=== PATIENT | female | born 1995 | race African-American/Black ===

== ENCOUNTER 2018-12-19 18:33 | Emergency (ER) | payer SELFPAY ==
[~2018-12-19] VITALS: Ht 167.6 cm; Wt 74.8 kg
[2018-12-19 19:00] VITALS: BP 131/58
[2018-12-19] MEDS ORDERED: KETOROLAC 60 MG/2 ML VIAL. IM ONE (19:15)
--- NOTE | 2018-12-19 19:22 | PHYS DOC ---
Past Medical History Past Medical History: No Pertinent History Past Surgical History: Tubal ligation Alcohol Use: None Drug Use: None Adult General Chief Complaint Chief Complaint: SHOULDER INJURY HPI HPI Patient is a 23 year old female who presents with pain to her left shoulder x one week. She denies any injury. She states that she feels tightness in the muscles around her neck. She has full range of motion but states that occasionally when turning her body she will feel a shooting pain. Review of Systems Review of Systems Constitutional: Denies fever or chills [] Eyes: Denies change in visual acuity, redness, or eye pain [] HENT: Denies nasal congestion or sore throat [] Respiratory: Denies cough or shortness of breath [] Cardiovascular: No additional information not addressed in HPI [] GI: Denies abdominal pain, nausea, vomiting, bloody stools or diarrhea [] : Denies dysuria or hematuria [] Musculoskeletal: see history of present illness Integument: Denies rash or skin lesions [] Neurologic: Denies headache, focal weakness or sensory changes [] Endocrine: Denies polyuria or polydipsia [] All other systems were reviewed and found to be within normal limits, except as documented in this note. Current Medications Current Medications Current Medications Medications (Trade) Dose Ordered Sig/Higinio Start Time Stop Time Status Last Admin Dose Admin Ketorolac Tromethamine (Toradol Im) 60 mg 1X ONCE 12/19/18 19:15 12/19/18 19:28 DC 12/19/18 19:15 60 MG Allergies Allergies Allergies Coded Allergies Type Severity Reaction Last Updated Verified No Known Drug Allergies 12/19/18 No Physical Exam Physical Exam Constitutional: Well developed, well nourished, no acute distress, non-toxic appearance. [] HENT: Normocephalic, atraumatic, bilateral external ears normal, oropharynx moist, no oral exudates, nose normal. [] Eyes: PERRLA, EOMI, conjunctiva normal, no discharge. [] Neck: Normal range of motion, no tenderness, supple, no stridor. [] Cardiovascular:Heart rate regular rhythm, no murmur [] Lungs & Thorax: Bilateral breath sounds clear to auscultation [] Abdomen: Bowel sounds normal, soft, no tenderness, no masses, no pulsatile masses. [] Skin: Warm, dry, no erythema, no rash. [] Back: No tenderness, no CVA tenderness. [] Extremities: tenderness to left trapezius with patient, no cyanosis, no clubbing , ROM intact, no edema. [] Neurologic: Alert and oriented X 3, normal motor function, normal sensory function, no focal deficits noted. [] Psychologic: Affect normal, judgement normal, mood normal. [] Current Patient Data Vital Signs Vital Signs Date Time Temp Pulse Resp B/P (MAP) Pulse Ox O2 Delivery O2 Flow Rate FiO2 12/19/18 19:00 98.6 76 16 131/58 (82) 97 Room Air 98.6 EKG EKG [] Radiology/Procedures Radiology/Procedures [] Course & Med Decision Making Course & Med Decision Making Pertinent Labs and Imaging studies reviewed. (See chart for details) [] Dragon Disclaimer Dragon Disclaimer This electronic medical record was generated, in whole or in part, using a voice recognition dictation system. Departure Departure Impression: Primary Impression: Shoulder strain Disposition: HOME, SELF-CARE Condition: STABLE Referrals: CHAITANYA BAI MD (PCP) Patient Instructions: Shoulder Pain, Shoulder, Range of Motion Exercises Additional Instructions: Take the medications as directed. Do not drive or operate heavy machinery while taking these medications. They may cause drowsiness. Follow-up with your primary care provider in one week if not improving or return to the emergency department if worsening. Scripts Tramadol Hcl (TRAMADOL HCL) 50 Mg Tablet 50 MG PO DAILY PRN for PAIN for 30 Days, #30 TAB 0 Refills Prov: MAYURI BHAGAT APRN 12/19/18 Cyclobenzaprine Hcl (CYCLOBENZAPRINE HCL) 5 Mg Tablet 1 TAB PO QHS for shoulder strain, #30 TAB Prov: MAYURI BHAGAT APRN 12/19/18 MAYURI BHAGAT APRN Dec 19, 2018 19:22
[2018-12-19] MEDS ORDERED: CYCL5TAB PO (19:45)
[2018-12-19] MEDS ORDERED: TRAM50TA PO (19:45)
== END 2018-12-19 19:57 | disposition home or self-care (01) ==
LOC: ER 18:33
DX: S46.812A Strain of other muscles, fascia and tendons at shoulder and upper arm level, left arm, initial encounter (principal); X58.XXXA Exposure to other specified factors, initial encounter; Y93.89 Activity, other specified; Y92.89 Other specified places as the place of occurrence of the external cause; Y99.8 Other external cause status; Z98.51 Tubal ligation status
CPT/HCPCS: 96372; 99283; J1885

== ENCOUNTER 2018-12-29 20:37 | Emergency (ER) | payer SELFPAY ==
[~2018-12-29] VITALS: Ht 167.6 cm; Wt 72.6 kg
[~2018-12-29 20:37] MED LIST: CYCL5TAB PO; TRAM50TA PO
[2018-12-29 21:42] LABS: BILIRUBIN,URINE NEGATIVE (NEG); CLARITY,URINE CLOUDY; COLOR,URINE YELLOW; NITRITE,URINE NEGATIVE (NEG); PH,URINE 5.5; PROTEIN,URINE NEGATIVE (NEG-TRACE); UROBILINOGEN,URINE 0.2 mg/dL (0.2 mg/dL)
[2018-12-29 21:43] LABS: BASO % 1 % (0-3); EOS # 0.1 x10^3/uL (0.0-0.7); EOS % 2 % (0-3); HEMOGLOBIN 12.5 g/dL (12.0-15.5); LYMPH # 2.9 x10^3/uL (1.0-4.8); LYMPH % 53 % (24-48); MEAN CORPUSCULAR HEMOGLOBIN 27 pg (25-35); MEAN CORPUSCULAR HGB CONC 33 g/dL (31-37); MEAN CORPUSCULAR VOLUME 82 fL (79-100); MONO # 0.5 x10^3/uL (0.0-1.1); MONO % 9 % (0-9); NEUT % 35 % (31-73); PLATELET COUNT 332 x10^3/uL (140-400); RED BLOOD COUNT 4.66 x10^6/uL (3.50-5.40); RED CELL DISTRIBUTION WIDTH 13.2 % (11.5-14.5); WHITE BLOOD COUNT 5.5 x10^3/uL (4.0-11.0)
[2018-12-29] MEDS ORDERED: IV NORMAL SALINE 1000ML BAG 1,000 ML IV SCH (21:45)
[2018-12-29] MEDS ORDERED: ONDANSETRON PF 4 MG/2 ML VIAL. IV ONE (21:45)
[2018-12-29] MEDS ORDERED: KETOROLAC 30 MG/ML VIAL. IV ONE (21:45)
[2018-12-29 21:52] LABS: CALCIUM 8.9 mg/dL (8.5-10.1); CREATININE 0.9 mg/dL (0.6-1.0); GFR 92.3; POTASSIUM 3.8 mmol/L (3.5-5.1)
[2018-12-29 21:52] LABS: BACTERIA,URINE MANY /HPF (0-FEW); RBC,URINE OCC /HPF (0-2); SQUAMOUS EPITHELIAL CELL,UR MANY /LPF; WBC,URINE >40 /HPF (0-4)
[2018-12-29 21:58] LABS: ALBUMIN 3.9 g/dL (3.4-5.0); TOTAL BILIRUBIN 0.2 mg/dL (0.2-1.0); TOTAL PROTEIN 7.8 g/dL (6.4-8.2)
[2018-12-29] MEDS ORDERED: CONTRAST GIVEN. MC PRN (23:00)
[2018-12-29] MEDS ORDERED: IOHEXOL 300 MG/ML 100ML VIAL. IV ONE (23:00)
--- NOTE | 2018-12-29 23:19 | RAD ---
PQRS Compliance Statement: One or more of the following individualized dose reduction techniques were utilized for this examination: 1. Automated exposure control 2. Adjustment of the mA and/or kV according to patient size 3. Use of iterative reconstruction technique CT abdomen/pelvis with contrast 12/29/2018 10:27 PM INDICATION: Abdominal pain COMPARISON: None available TECHNIQUE: Multiple axial CT images of the abdomen and pelvis were obtained after the intravenous administration of 75 mL Omnipaque 300. Coronal and sagittal reformats are provided. FINDINGS: Visualized portions of the lung bases are clear. Heart size is within normal limits. No suspicious hepatic masses are identified. Liver is homogeneous in enhancement. Spleen, bilateral adrenal glands, and pancreas are normal in appearance. Gallbladder is present without adjacent inflammatory changes. The abdominal aorta is normal in course and caliber. There are no pathologically enlarged lymph nodes in the abdomen and pelvis. There is no abdominal free fluid. There is no free intraperitoneal air. The kidneys enhance symmetrically. There is no suspicious renal mass. There is no hydronephrosis. There are no suspected calculi within the kidneys, ureters or urinary bladder. Small and large bowel are normal in caliber. There is no evidence for bowel obstruction. There are no pericolonic inflammatory changes. A normal, nondilated appendix is visualized without adjacent inflammatory changes. The urinary bladder is within normal limits given degree of distention. Uterus and adnexa are within normal limits. No suspicious pelvic masses are identified. There are no suspicious osseous lesions identified. Phleboliths are identified within the pelvis. Tubal ligation clips are identified bilaterally. IMPRESSION: There is no acute abnormality identified in abdomen or pelvis. Electronically signed by: Lauren Cook MD (12/29/2018 11:17 PM) [facility]
[2018-12-29 23:42] VITALS: BP 126/72
[2018-12-29] MEDS ORDERED: TRAM50TA PO (23:58)
[2018-12-29] MEDS ORDERED: ONDA4TAB7 PO (23:58)
--- NOTE | 2018-12-29 23:58 | PHYS DOC ---
Past Medical History Past Medical History: No Pertinent History Past Surgical History: Tubal ligation Alcohol Use: None Drug Use: None Adult General Chief Complaint Chief Complaint: ABDOMINAL PAIN [facility] HPI Patient is a 23-year-old female who presents with complaint of lower abdominal pain for the last few days. She states the pain is primarily in the right lower abdomen. She denies any nausea, vomiting or diarrhea. She also denies any fever. She ascribes pain as being a cramp-like. She rates pain at a 7 out of 10. Patient states that nothing improves her pain. She does indicate the pain is worsened when she is up and walking. She denies any urinary discomfort. Review of Systems Review of Systems Constitutional: Denies fever or chills [] Respiratory: Denies cough or shortness of breath [] Cardiovascular: No additional information not addressed in HPI [] GI: Complains of lower abdominal pain without nausea, vomiting or diarrhea [] : Denies dysuria or hematuria [] Musculoskeletal: Denies back pain or joint pain [] All other systems were reviewed and found to be within normal limits, except as documented in this note. Current Medications Current Medications Current Medications Medications (Trade) Dose Ordered Sig/Higinio Start Time Stop Time Status Last Admin Dose Admin Info (CONTRAST GIVEN -- Rx MONITORING) 1 each PRN DAILY PRN 12/29/18 23:00 12/30/18 00:10 DC Iohexol (Omnipaque 300 Mg/ml) 75 ml 1X ONCE 12/29/18 23:00 12/29/18 23:01 DC 12/29/18 23:06 75 ML Ketorolac Tromethamine (Toradol 30mg Vial) 30 mg 1X ONCE 12/29/18 21:45 12/29/18 21:46 DC 12/29/18 21:47 30 MG Ondansetron HCl (Zofran) 4 mg 1X ONCE 12/29/18 21:45 12/29/18 21:46 DC 12/29/18 21:46 4 MG Sodium Chloride 1,000 ml @ 1,000 mls/hr Q1H 12/29/18 21:45 12/29/18 22:44 DC 12/29/18 21:44 1,000 MLS/HR Allergies Allergies Allergies Coded Allergies Type Severity Reaction Last Updated Verified No Known Drug Allergies 12/19/18 No Physical Exam Physical Exam Constitutional: Well developed, well nourished, no acute distress, non-toxic appearance. [] HENT: Normocephalic, atraumatic, bilateral external ears normal, oropharynx moist, no oral exudates, nose normal. [] Eyes: PERRLA, EOMI, conjunctiva normal, no discharge. [] Neck: Normal range of motion, no tenderness, supple, no stridor. [] Cardiovascular:Heart rate regular rhythm, no murmur [] Lungs & Thorax: Bilateral breath sounds clear to auscultation [] Abdomen: Bowel sounds normal, soft with mild tenderness to palpation in the right lower a abdominal/adnexal region. [] Skin: Warm, dry, no erythema, no rash. [] Extremities: No tenderness, no cyanosis, no clubbing, ROM intact, no edema. [] Neurologic: Alert and oriented X 3, normal motor function, normal sensory function, no focal deficits noted. [] Current Patient Data Vital Signs Vital Signs Date Time Temp Pulse Resp B/P (MAP) Pulse Ox O2 Delivery O2 Flow Rate FiO2 12/29/18 23:42 60 18 126/72 (90) 100 12/29/18 22:00 Room Air 12/29/18 21:02 97.9 97.9 Lab Values Laboratory Tests Test 12/29/18 20:59 12/29/18 21:00 12/29/18 21:34 Urine Collection Type Unknown Urine Color Yellow Urine Clarity Cloudy Urine pH 5.5 Urine Specific [place] 1.020 Urine Protein Negative mg/dL (NEG-TRACE) Urine Glucose (UA) Negative mg/dL (NEG) Urine Ketones (Stick) Negative mg/dL (NEG) Urine Blood Trace (NEG) Urine Nitrite Negative (NEG) Urine Bilirubin Negative (NEG) Urine Urobilinogen Dipstick 0.2 mg/dL (0.2 mg/dL) Urine Leukocyte Esterase Large (NEG) Urine RBC Occ /HPF (0-2) Urine WBC >40 /HPF (0-4) Urine Squamous Epithelial Cells Many /LPF Urine Bacteria Many /HPF (0-FEW) Urine Mucus Marked /LPF POC Urine HCG, Qualitative Hcg negative (Negative) White Blood Count 5.5 x10^3/uL (4.0-11.0) Red Blood Count 4.66 x10^6/uL (3.50-5.40) Hemoglobin 12.5 g/dL (12.0-15.5) Hematocrit 38.0 % (36.0-47.0) Mean Corpuscular Volume 82 fL (79-100) Mean Corpuscular Hemoglobin 27 pg (25-35) Mean Corpuscular Hemoglobin Concent 33 g/dL (31-37) Red Cell Distribution Width 13.2 % (11.5-14.5) Platelet Count 332 x10^3/uL (140-400) Neutrophils (%) (Auto) 35 % (31-73) Lymphocytes (%) (Auto) 53 % (24-48) H Monocytes (%) (Auto) 9 % (0-9) Eosinophils (%) (Auto) 2 % (0-3) Basophils (%) (Auto) 1 % (0-3) Neutrophils # (Auto) 2.0 x10^3uL (1.8-7.7) Lymphocytes # (Auto) 2.9 x10^3/uL (1.0-4.8) Monocytes # (Auto) 0.5 x10^3/uL (0.0-1.1) Eosinophils # (Auto) 0.1 x10^3/uL (0.0-0.7) Basophils # (Auto) 0.0 x10^3/uL (0.0-0.2) Sodium Level 137 mmol/L (136-145) Potassium Level 3.8 mmol/L (3.5-5.1) Chloride Level 101 mmol/L (98-107) Carbon Dioxide Level 27 mmol/L (21-32) Anion Gap 9 (6-14) Blood Urea Nitrogen 12 mg/dL (7-20) Creatinine 0.9 mg/dL (0.6-1.0) Estimated GFR (Cockcroft-Gault) 92.3 BUN/Creatinine Ratio 13 (6-20) Glucose Level 87 mg/dL (70-99) Calcium Level 8.9 mg/dL (8.5-10.1) Total Bilirubin 0.2 mg/dL (0.2-1.0) Aspartate Amino Transferase (AST) 11 U/L (15-37) L Alanine Aminotransferase (ALT) 12 U/L (14-59) L Alkaline Phosphatase 48 U/L (46-116) Total Protein 7.8 g/dL (6.4-8.2) Albumin 3.9 g/dL (3.4-5.0) Albumin/Globulin Ratio 1.0 (1.0-1.7) Lipase 99 U/L (73-393) Laboratory Tests 12/29/18 21:34 Laboratory Tests 12/29/18 21:34 EKG EKG [] Radiology/Procedures Radiology/Procedures [] Impressions: CT abdomen/pelvis with contrast 12/29/2018 10:27 PM INDICATION: Abdominal pain COMPARISON: None available TECHNIQUE: Multiple axial CT images of the abdomen and pelvis were obtained after the intravenous administration of 75 mL Omnipaque 300. Coronal and sagittal reformats are provided. FINDINGS: Visualized portions of the lung bases are clear. Heart size is within normal limits. No suspicious hepatic masses are identified. Liver is homogeneous in enhancement. Spleen, bilateral adrenal glands, and pancreas are normal in appearance. Gallbladder is present without adjacent inflammatory changes. The abdominal aorta is normal in course and caliber. There are no pathologically enlarged lymph nodes in the abdomen and pelvis. There is no abdominal free fluid. There is no free intraperitoneal air. The kidneys enhance symmetrically. There is no suspicious renal mass. There is no hydronephrosis. There are no suspected calculi within the kidneys, ureters or urinary bladder. Small and large bowel are normal in caliber. There is no evidence for bowel obstruction. There are no pericolonic inflammatory changes. A normal, nondilated appendix is visualized without adjacent inflammatory changes. The urinary bladder is within normal limits given degree of distention. Uterus and adnexa are within normal limits. No suspicious pelvic masses are identified. There are no suspicious osseous lesions identified. Phleboliths are identified within the pelvis. Tubal ligation clips are identified bilaterally. IMPRESSION: There is no acute abnormality identified in abdomen or pelvis. Electronically signed by: Sindhu Cook MD (12/29/2018 11:17 PM) [facility] DICTATED and SIGNED BY: SINDHU COOK MD Course & Med Decision Making Course & Med Decision Making Pertinent Labs and Imaging studies reviewed. (See chart for details) [] Dragon Disclaimer Dragon Disclaimer This electronic medical record was generated, in whole or in part, using a voice recognition dictation system. Departure Departure Impression: Primary Impression: Lower abdominal pain Disposition: 01 HOME, SELF-CARE Condition: STABLE Referrals: CHAITANYA BAI MD (PCP) Patient Instructions: Abdominal Pain (Nonspecific) Scripts Ondansetron Hcl (ZOFRAN) 4 Mg Tablet 4 MG PO PRN TID PRN for NAUSEA, #15 nausea/vomiting Prov: IRON AVRGAS Jr. DO 12/29/18 Tramadol Hcl (TRAMADOL HCL) 50 Mg Tablet 50 MG PO Q6HRS PRN for PAIN, #12 TAB Prov: IRON VARGAS Jr. DO 12/29/18 IRON VARGAS Jr. DO Dec 29, 2018 23:58
== END 2018-12-30 00:10 | disposition home or self-care (01) ==
LOC: ER 21:48
DX: R10.31 Right lower quadrant pain (principal); Z98.51 Tubal ligation status
CPT/HCPCS: 36415; 74177; 80053; 81001; 81025; 83690; 85025; 87086; 87186; 96374; 96375; 99284; J1885; J2405; J7030; Q9967